=== PATIENT | female | born 1970 | race Caucasian/White ===

== ENCOUNTER 2023-03-12 14:16 | Emergency (ER) | payer MEDICAID, OTHER ==
[~2023-03-12] VITALS: Ht 157.5 cm; Wt 59.1 kg
[2023-03-12 14:18] VITALS: O2SAT 100
[2023-03-12] MEDS ORDERED: ACETAMINOPHEN 325MG TABLET PO STA (14:34)
[2023-03-12] MEDS ORDERED: SODIUM CHLORIDE 0.9% 1000ML BAG (SEPSIS BOLUS) IV ONE (14:45)
[2023-03-12] MEDS ORDERED: ONDANSETRON HCL 4MG/2ML INJ IV ONE (15:00)
[2023-03-12] MEDS ORDERED: MORPHINE SULFATE 4 MG/ML CPJ (NOT FOR IM USE) IV ONE (15:00)
[2023-03-12 16:07] LABS: CLARITY URINE CLEAR (CLEAR); COLOR URINE YELLOW (YELLOW); KETONES URINE NEGATIVE (NEGATIVE); LEUKOCYTE ESTERASE URINE NEGATIVE (NEGATIVE); NITRITE URINE NEGATIVE (NEGATIVE); OCCULT BLOOD URINE NEGATIVE (NEGATIVE); PH URINE 5.5 (4.5-8.0); PROTEIN URINE NEGATIVE (NEGATIVE); SPECIFIC GRAVITY URINE 1.004 (1.005-1.030); UROBILINOGEN URINE 0.2 E.U./dL (0.2-1.0)
[2023-03-12 16:18] LABS: BG BASE EXCESS -0.6 mmol/L (-2.0-2.0); BG CARBOXYHEMOGLOBIN 0.7 % (0.5-1.5); BG DEOXYHEMOGLOBIN 11.4 % (0.0-5.0); BG FRACTION INSPIRED OXYGEN 21; BG HCO3 ACT 21.7 mmol/L (22.0-26.0); BG METHEMOGLOBIN 0.2 % (0.0-1.5); BG OXYGEN SATURATION 88.5 % (92.0-98.5); BG OXYHEMOGLOBIN 87.7 % (94.0-97.0); BG PCO2 29.3 mmHg (35.0-45.0); BG PH 7.488 (7.350-7.450); BG PO2 50.1 mmHg (75.0-100.0); BG SAMPLE SITE RIGHT RADIAL; BG TOTAL HEMOGLOBIN 13.5 g/dL (12.0-18.0); BG VENT MODE ROOM AIR
[2023-03-12 16:24] LABS: BASOPHILS % 0.6 % (0.0-2.0); EOSINOPHILS % 0.8 % (0.0-5.0); HEMATOCRIT. 36.1 % (36.0-48.0); HEMOGLOBIN. 12.2 g/dL (12.0-16.0); MEAN CORPUSCULAR HEMOGLOBIN 32.3 pg (28.0-32.0); MEAN CORPUSCULAR VOLUME 95.9 fL (81.0-99.0); MEAN PLATELET VOLUME 6.9 fl (7.4-10.4); MONOCYTES % 5.1 % (2.0-8.0); NEUTROPHILS % 65.5 % (40.0-76.0); PLATELET 214 x1000/uL (130-400); RED BLOOD CELL COUNT 3.76 mill/uL (4.2-5.4); RED CELL DISTRIBUTION WIDTH 14.4 % (11.6-14.6)
[2023-03-12 16:28] LABS: *AMPHETAMINES SCREEN URINE NEGATIVE (NEGATIVE); *BARBITURATES SCREEN URINE NEGATIVE (NEGATIVE); *BENZODIAZEPINES SCREEN URINE NEGATIVE (NEGATIVE); *COCAINE SCREEN URINE NEGATIVE (NEGATIVE); CANNABINOID URINE SCREEN NEGATIVE (NEGATIVE); METHADONE URINE SCREEN NEGATIVE (NEGATIVE); OPIATES URINE SCREEN NEGATIVE (NEGATIVE); PHENCYCLIDINE URINE SCREEN NEGATIVE (NEGATIVE)
[2023-03-12 16:28] LABS: CHLORIDE 110 mEq/L (98-107)
[2023-03-12 16:38] LABS: ETHANOL BLOOD < 10 mg/dL (-10)
[2023-03-12] MEDS ORDERED: ONDA4TAB50 MT (18:44)
[2023-03-12] MEDS ORDERED: HYDR-4009 MT (18:44)
[2023-03-12] MEDS ORDERED: IBUP-2029 MT (18:44)
[2023-03-12 19:39] VITALS: BP 129/78; PULSE 67; RESP 20; TEMP 97.9
[2023-03-12] MEDS ORDERED: IOHEXOL-300 100 ML BOTTLE ONE (20:00)
== END 2023-03-12 19:42 | disposition home or self-care (01) ==
LOC: ER 14:16
DX: K52.9 Noninfective gastroenteritis and colitis, unspecified (principal); G44.209 Tension-type headache, unspecified, not intractable; Z85.3 Personal history of malignant neoplasm of breast
CPT/HCPCS: 80053; 80305; 81003; 80320; 83605; 85025; 85610; 87040; 87086; 84484; 36415; 84145; 71045; 70450; 74177; 82805; 82375; 96361; 96374; 99285; 36600; Q9967; J2405; J2270; J7030; Z7610 ×3; G0480